=== PATIENT | female | born 1975 | race Caucasian/White ===

== ENCOUNTER → 2016-09-02 | Day surgery (SDC) | payer BC ==
[~2016-09-02] MED LIST: ALBUTEROL17 GM INH; ALEVE220 M1 PO; TESSALON PERLE100 M1 DOB
--- NOTE | ~2016-09-02 | CR7 ---
[facility] A Service of [facility] & [facility] RADIOLOGY TEXT RESULTS PATIENT: NARCISO ELLINGTON LOCATION: [facility] : [birth year] UNIT #: [id number] AGE: [address]: Ismael Gotti III, MD SEX: F ORDER DR: [id number] [facility] [address] [place], [place] [address] [id number] O MR#: [id number] Acc #: [id number] NAME: NARCISO ELLINGTON : 1975 SEX: F STUDY DATE/TIME: 09/02/2016 9:07 UNIT: [facility] ROOM: STUDY DESCRIPTION: CR Abdomen Single AP View Attending Physician: Ismael Gotti III, M.D. Ordering Physician: Ismael Gotti III, M.D. Primary Care Physician: Generic Doctor Not In System MEDICAL IMAGING REPORT This report is preliminary unless electronic signature is present EXAM Abdomen INDICATION Postop Lap-Band placement. Evaluate for position of band. Abdomen pain. FINDINGS A supine view of the abdomen was obtained. A gastric band device is visible and has an angle of 65 degrees vertical through the spine. The bowel gas pattern is normal. IMPRESSION The Lap-Band device appears to be in good position. The bowel gas pattern is normal. Dictated by... Garcia Liang M.D. THIS IS AN ELECTRONICALLY VERIFIED REPORT Garcia Liang M.D. at 09/02/2016 2:07 PM AMY/samreen TD: 09/02/2016 12:42 JOB #: [id number] MEDICAL IMAGING REPORT COPY
--- NOTE | ~2016-09-02 | OR ---
Unit #: [id number] #: [id number] Patient: NARCISO ELLINGTON [id number] [facility] [address]. [place], [place] [address] [id number] O MR#: [id number] NAME: NARCISO ELLINGTON ROOM: Date of Procedure: 09/02/2016 Admission Date: 09/02/2016 Surgeon: Ismael Gotti III, M.D. : 1975 Attending Physician: Ismael Gotti III, M.D. OPERATIVE REPORT PREOPERATIVE DIAGNOSIS Chronic severe obesity. POSTOPERATIVE DIAGNOSIS Chronic severe obesity. PROCEDURE PERFORMED Laparoscopic adjustable gastric banding (AP standard with low-profile port) and laparoscopic paraesophageal hernia repair. COLLECTIONS PROFESSIONAL Chuy Greco M.D. SPECIMENS None. COMPLICATIONS None apparent. ESTIMATED BLOOD LOSS Minimal. INDICATIONS FOR PROCEDURE This is a 41-year-old lady, who has chronic severe obesity with a BMI of 35 and associated comorbidities of sleep apnea. She has been through the bariatric program at [facility] and understands the risks and benefits of the procedure. DESCRIPTION OF PROCEDURE After consent was obtained, including the risks and benefits of slippage, erosion, port dysfunction, and possible failure of weight loss due to noncompliance, the patient was taken to the operating room and placed in the supine position. General anesthetic was administered and the abdomen was prepped and draped in standard surgical fashion. I began by making a 2 cm incision just above and to the left of the umbilicus. I used a Visiport to enter the peritoneal cavity without any difficulty. C02 pneumoperitoneum was then established. Next, I placed a 5 mm port in the right upper quadrant, a 5 mm Meño liver retractor in the subxiphoid region to provide exposure of the gastroesophageal junction. Next, a 10 mm port was placed in the left upper quadrant and a 5 mm port was placed in the left lateral subcostal region. I began by Unit #: [id number] #: [id number] Patient: NARCISO ELLINGTON performing an examination of the GE junction to evaluate for a hiatal hernia. We then scored the peritoneal attachments overlying the angle of His. I then opened up the clear space in the gastrohepatic ligament, and then using 2 blunt graspers, I identified the small fat pad crossing over the right crura. I swept the fat anterior to the crura off the crura and using the pars flaccida, I created a retrogastric tunnel where the blunt grasper exited at the angle of His. Once I had made this tunnel safely, I then inserted an Allergan AP band into the abdominal cavity. This adjustable gastric band was then place around the upper part of the stomach and fastened and buckled anteriorly. We then tacked the lateral fundus over the band to the proximal pouch with 2 interrupted 0 Ethibond sutures. I then used a third stitch to imbricate the excess anterior stomach by going from the lesser curvature up towards where the last stitch was placed. We then had excellent hemostasis. I removed the Meño liver retractor. We then removed the port tubing through the initial port incision. The rest of the ports were removed, and the pneumoperitoneum was released. I then left a small tail on the tubing. We then attached the port to the excess band tubing. We placed a piece of Prolene mesh along the back side of the port and used a Prolene stitch to anchor this mesh in place. We then trimmed the excess mesh so that just a small footprint of mesh was in place behind the port. I then inserted the tubing back into the abdominal cavity, and we placed the port into a small pocket that was made just inferior to where our initial port incision was made. The mesh was in direct contact with the fascia, and this will scar in place to hold the port in place. We then injected all the port sites with 0.25% plain Marcaine, and I reapproximated the skin edges with interrupted 4-0 Vicryl subcuticular sutures. Steri-strips were then applied. The patient tolerated the procedure without any problems and returned to the recovery room in stable condition. After exposure of the GE junction, the patient was noted to have a small to medium size anterior paraesophageal hernia. I scored the phrenoesophageal ligament, reduced the hernia defect and after identifying both the right and left crura, I reapproximated the defect with an interrupted 0 Ethibond oxagqg-tc-[id number] suture. I then proceeded with the case as listed above. Dictated by... Ismael Gotti III, M.D. VCL/pierre TD: 09/04/2016 00:59 JOB #: [id number] OPERATIVE REPORT X Ismael Gotti III, MD PROCEDURE OPERATIVE NOTE
== END | disposition home or self-care (01) ==
LOC: CSUR 06:01
DX: E66.01 Morbid (severe) obesity due to excess calories (principal); K44.9 Diaphragmatic hernia without obstruction or gangrene; J40 Bronchitis, not specified as acute or chronic; G47.30 Sleep apnea, unspecified; Z68.35 Body mass index [BMI] 35.0-35.9, adult; Z87.891 Personal history of nicotine dependence; Z88.5 Allergy status to narcotic agent; Z88.8 Allergy status to other drugs, medicaments and biological substances; Z90.710 Acquired absence of both cervix and uterus; Z98.890 Other specified postprocedural states; Z99.89 Dependence on other enabling machines and devices
CPT/HCPCS: 74000; C1781; J0690; J1650; J1885; J2250; J2405; J2710; J3010